=== PATIENT | male | born 1980 | race Two or more races ===

== ENCOUNTER 2019-08-16 12:55 | Emergency (ER) | payer SELFPAY ==
--- NOTE | 2019-08-16 15:30 | ER Document Report ---
ED Medical Screen (RME) - General Chief Complaint: Abdominal Pain Stated Complaint: ABDOMINAL PAIN Time Seen by Provider: 08/16/19 15:15 Notes: Patient is a 38-year-old m male who presents emergency department with a chief complaint of abdominal pain. Patient reports he has had lower abdominal pain intermittently for 1 month. Patient reports that he was seen originally at a clinic and was given MiraLAX which did seem to improve his symptoms. Patient reports he did take a dose of MiraLAX on Friday. Patient reports his last bowel movement was yesterday and normal. Patient denies blood in the stool. Patient denies urinary symptoms, fever, vomiting. Patient reports despite having bowel movements he continues to have the lower abdominal pain. Patient reports he is able to eat and drink appropriately. Patient denies any past medical or surgical history. Patient denies home medications. Past Medical History - Social History Chew tobacco use (# tins/day): No Frequency of alcohol use: None Drug Abuse: None Physical Exam - Vital signs Vitals: Temp Pulse Resp BP Pulse Ox 98.4 F 62 16 130/94 H 100 08/16/19 13:01 08/16/19 13:01 08/16/19 13:01 08/16/19 13:01 08/16/19 13:01 - Abdominal Inspection: Normal Distension: No distension Bowel sounds: Hyperactive Tenderness: Nontender Organomegaly: No organomegaly Course - Re-evaluation Re-evalutation: 08/16/19 15:29 Patient will require a thorough abdominal exam. Will obtain basic labs, urinalysis and abdominal ultrasound. I have greeted and performed a rapid initial assessment of this patient. A comprehensive ED assessment and evaluation of the patient, analysis of test results and completion of the medical decision making process will be conducted by additional ED providers. - Vital Signs Vital signs: Temp Pulse Resp BP Pulse Ox 98.4 F 62 16 130/94 H 100 08/16/19 15:18 08/16/19 13:01 08/16/19 15:18 08/16/19 13:01 08/16/19 15:18
[2019-08-16 16:40] LABS: ABSOLUTE EOSINOPHILS # (AUTO) 0.1 10^3/uL (0.0-0.6); ABSOLUTE LYMPHOCYTES (AUTO) 3.2 10^3/uL (0.5-4.7); ABSOLUTE MONOCYTES (AUTO) 0.8 10^3/uL (0.1-1.4); ABSOLUTE NEUT (AUTO) 7.2 10^3/uL (1.7-8.2); BASOPHILS % (AUTO) 0.4 % (0-2); EOSINOPHILS % (AUTO) 0.8 % (0-6); HEMATOCRIT 48.3 % (37.9-51.0); HEMOGLOBIN 16.4 g/dL (13.5-17.0); LYMPHOCYTES % (AUTO) 28.3 % (13-45); MEAN CORPUSCULAR HEMOGLOBIN 29.8 pg (27.0-33.4); MEAN CORPUSCULAR HGB CONC 34.1 g/dL (32.0-36.0); MEAN CORPUSCULAR VOLUME 87 fl (80-97); MONOCYTES % (AUTO) 7.3 % (3-13); PLATELET COUNT 264 10^3/uL (150-450); RED BLOOD COUNT 5.52 10^6/uL (4.35-5.55); RED CELL DISTRIBUTION WIDTH 12.8 % (11.5-14.0); SEGMENTED NEUTROPHILS % (AUTO) 63.2 % (42-78); TOTAL CELLS COUNTED % (AUTO) 100 %; WHITE BLOOD COUNT 11.4 10^3/uL (4.0-10.5)
[2019-08-16 16:54] LABS: APPEARANCE,URINE SLIGHTLY-CLOUDY; BILIRUBIN,URINE NEGATIVE (NEGATIVE); COLOR,URINE YELLOW; GLUCOSE, URINE NEGATIVE (NEGATIVE); KETONES,URINE NEGATIVE (NEGATIVE); LEUKOCYTE ESTERASE,URINE NEGATIVE (NEGATIVE); NITRITE,URINE NEGATIVE (NEGATIVE); PROTEIN,URINE 30 mg/dL (NEGATIVE); URINE SPECIFIC GRAVITY 1.029; UROBILINOGEN,URINE NEGATIVE mg/dL (<2.0)
[2019-08-16 17:02] LABS: ALBUMIN 5.3 g/dL (3.5-5.0); ALKALINE PHOSPHATASE 69 U/L (38-126); ANION GAP 15 (5-19); ASPARTATE AMINO TRANSFERASE 28 U/L (17-59); BILIRUBIN,DIRECT 0.2 mg/dL (0.0-0.4); BILIRUBIN,TOTAL 0.6 mg/dL (0.2-1.3); BLOOD UREA NITROGEN 17 mg/dL (7-20); CALCIUM 10.3 mg/dL (8.4-10.2); CARBON DIOXIDE 27 mmol/L (22-30); CHLORIDE 101 mmol/L (98-107); GLUCOSE 95 mg/dL (75-110); POTASSIUM 4.8 mmol/L (3.6-5.0); TOTAL PROTEIN 8.7 g/dL (6.3-8.2)
--- NOTE | 2019-08-16 17:51 | RADIOLOGY REPORT (SQ) ---
EXAM DESCRIPTION: U/S ABDOMEN COMPLETE W/DOPPLER COMPLETED DATE/TIME: 08/16/2019 5:29 pm REASON FOR STUDY: generalized abdominal pain COMPARISON: None. TECHNIQUE: Dynamic and static grayscale images acquired of the abdomen and recorded on PACS. Additio nal selected color Doppler and spectral images recorded. Note: Study does not meet criteria for complete doppler/duplex scan LIMITATIONS: None. FINDINGS: PANCREAS: No masses. Visualized pancreatic duct normal caliber. LIVER: No masses. Echotexture normal. LIVER VASCULATURE: Normal directional flow of the main portal vein and hepatic veins. GALLBLADDER: No stones. Normal wall thickness. No pericholecystic fluid. ULTRASOUND-DETECTED OJEDA'S SIGN: Negative. INTRAHEPATIC DUCTS AND COMMON DUCT: CBD and intrahepatic ducts normal caliber. No filling defects. INFERIOR VENA CAVA: Normal flow. AORTA: No aneurysm. RIGHT KIDNEY: Normal size. Normal echogenicity. No solid or suspicious masses. No hydronephros is. No calcifications. LEFT KIDNEY: Normal size. Normal echogenicity. No solid or suspicious masses. No hydronephrosi s. No calcifications. SPLEEN: Normal size. No solid masses. PERITONEAL AND PLEURAL SPACES: No ascites or effusions. OTHER: No other significant finding. IMPRESSION: NORMAL ABDOMINAL ULTRASOUND. TECHNICAL DOCUMENTATION: JOB ID: [id number] [employer]- All Rights Reserved Reading location - IP/workstation name: [email or web address]
[2019-08-16] MEDS ORDERED: FAMOTIDINE 20 MG TABLET PO ONE (21:09)
--- NOTE | 2019-08-16 21:15 | ER Document Report ---
ED General - General Chief Complaint: Abdominal Pain Stated Complaint: ABDOMINAL PAIN Time Seen by Provider: 08/16/19 15:15 - HPI Notes: Patient is a 38-year-old male who presents the emergency department for evaluation of abdominal pain. He points to the epigastric region, then down through the entire middle of the abdomen, not across the lower abdomen. He states it hurts every day. It seems to be worse in the morning when he awakes. Nothing seems to make it better at this point. He states that he had been seen in the clinic in [facility] for constipation, they started him on MiraLAX. This is when his pain was present for 2 weeks. He states he started the MiraLAX, started having regular bowel movements, and his pain dissipated for about 2 weeks. He states that it restarted 2 weeks ago. He states he has been having normal bowel movements, has taken the MiraLAX anyway, and his pain is not gotten any better. He denies any fevers or chills. No nausea or vomiting. No urinary symptoms. Loose bowel movements now that he is taking the MiraLAX. He states that at times his pain is worsened by food. - Related Data Home Medications: MiraLAX Past Medical History - General Information source: Patient - Social History Smoking Status: Current Every Day Smoker Chew tobacco use (# tins/day): No Frequency of alcohol use: None Drug Abuse: None Family History: Reviewed & Not Pertinent Patient has suicidal ideation: No Patient has homicidal ideation: No - Medical History Medical History: Negative Review of Systems - Review of Systems Constitutional: No symptoms reported EENT: No symptoms reported Cardiovascular: No symptoms reported Respiratory: No symptoms reported Gastrointestinal: See HPI Genitourinary: No symptoms reported Musculoskeletal: No symptoms reported Skin: No symptoms reported Neurological/Psychological: No symptoms reported Physical Exam - Vital signs Vitals: Temp Pulse Resp BP Pulse Ox 98.4 F 62 16 130/94 H 100 08/16/19 13:01 08/16/19 13:01 08/16/19 13:01 08/16/19 13:01 08/16/19 13:01 - Notes Notes: Vital signs reviewed, please refer to chart. Head is normocephalic, atraumatic. Pupils equal round, reactive to light. Neck is supple without meningismus. Heart is regular rate and rhythm. Lungs are clear to auscultation bilaterally. Abdomen is soft, diffusely tender without rebound or guarding, normoactive bowel sounds throughout. Extremities without cyanosis, clubbing. Posterior calves are nontender. Peripheral pulses are equal. Skin is warm and dry. Patient is awake, alert, neurological exam is nonfocal. Course - Re-evaluation Re-evalutation: 08/16/19 21:13 Patient presents emergency department for evaluation. He complains of diffuse abdominal pain. I told him that he should stop taking the MiraLAX as he is having hyperactive bowel sounds and some loose stools. I do not suspect that he needs the MiraLAX treatment at this time. His pain is worsened by food, I adolfo pect he may in fact have a gastritis. I will start him on Pepcid. He is given his first dose here. His abdominal exam is nonsurgical. His laboratory investigations and ultrasound are unremarkable. He is to follow-up with primary care, will place a referral to [facility]. He is to return to the ED with worsening or new concerning symptoms of any sort. - Vital Signs Vital signs: Temp Pulse Resp BP Pulse Ox 98.4 F 62 16 130/94 H 100 08/16/19 15:18 08/16/19 13:01 08/16/19 15:18 08/16/19 13:01 08/16/19 15:18 - Laboratory Result Diagrams: 08/16/19 16:12 08/16/19 16:12 Laboratory results interpreted by me: 08/16/19 08/16/19 08/16/19 16:12 16:12 16:12 WBC 11.4 H Calcium 10.3 H Total Protein 8.7 H Albumin 5.3 H Urine Protein 30 H Urine Blood MODERATE H - Diagnostic Test Radiology reviewed: Reports reviewed Radiology results interpreted by me: 08/16/19 21:14 Abdomen Ultrasound 08/16/19 15:27 IMPRESSION: NORMAL ABDOMINAL ULTRASOUND. Discharge - Discharge Clinical Impression: Generalized abdominal pain, Gastritis Condition: Stable Disposition: HOME, SELF-CARE Instructions: Abdominal Pain ([facility]) Additional Instructions: Avoid spicy and greasy foods. Take the Pepcid as directed daily. Follow-up with primary care next week. Return to the emergency department if you develop worsening or new concerning symptoms of any sort. Prescriptions: Famotidine [Pepcid 20 mg Tablet] 20 mg PO DAILY #12 tablet [facility] [NO LOCAL MD] - Follow up as needed
[2019-08-16 21:19] VITALS: BP 128/72
== END 2019-08-16 21:19 | disposition home or self-care (01) ==
LOC: ER 12:55
DX: K29.70 Gastritis, unspecified, without bleeding (principal); R10.84 Generalized abdominal pain; F17.200 Nicotine dependence, unspecified, uncomplicated
CPT/HCPCS: 36415; 76700; 80053; 81001; 85025; 93976; 99284